=== PATIENT | female | born 1980 | race Caucasian/White ===

== ENCOUNTER 2020-11-14 07:09 | Observation (INO) | payer MEDICAID ==
[~2020-11-14] VITALS: Ht 165.1 cm; Wt 72.6 kg
== END 2020-11-14 09:49 | disposition home or self-care (01) ==
LOC: 8 EST LDRP 07:09
PROVIDERS: ADMIT Obstetrics & Gynecology; ATTEND Obstetrics & Gynecology
DX: O62.9 Abnormality of forces of labor, unspecified (principal); Z3A.37 37 weeks gestation of pregnancy
CPT/HCPCS: G0378 ×2; 99281